=== PATIENT | female | born 1985 | race Caucasian/White ===

== ENCOUNTER 2018-09-14 12:57 | Emergency (ER) | payer MEDICAID, OTHER ==
[~2018-09-14] VITALS: Ht 167.6 cm; Wt 88.5 kg
[2018-09-14 13:01] VITALS: BP 140/87
--- NOTE | 2018-09-14 13:21 | NUR ---
PT BIB SELF C/O MIGRAIN FLARE UP SINCE WEDNESDAY, PT IS AAOX4, NOT IN RESPIRATORY DISTRESS, V/S STABLE, KEPT RESTED AND COMFORTABLE, AWAITING ER MD FOR EVAL.
== END 2018-09-14 14:22 | disposition home or self-care (01) ==
LOC: ER 12:59
DX: G43.909 Migraine, unspecified, not intractable, without status migrainosus (principal); G89.29 Other chronic pain; F10.10 Alcohol abuse, uncomplicated; Y90.9 Presence of alcohol in blood, level not specified; Z76.0 Encounter for issue of repeat prescription
CPT/HCPCS: A4606; Z7610

== ENCOUNTER 2018-11-04 17:53 | Emergency (ER) | payer OTHER ==
[~2018-11-04] VITALS: Ht 167.6 cm; Wt 90.7 kg
[2018-11-04 17:53] VITALS: BP 151/79
--- NOTE | 2018-11-04 19:00 | NUR ---
Patient discharged to home in stable condition. Written and verbal after care instructions given. Patient verbalizes understanding of instruction.
== END 2018-11-04 19:00 | disposition home or self-care (01) ==
LOC: ER 17:54
DX: G43.909 Migraine, unspecified, not intractable, without status migrainosus (principal); G89.29 Other chronic pain; F10.10 Alcohol abuse, uncomplicated; Y90.9 Presence of alcohol in blood, level not specified; Z76.0 Encounter for issue of repeat prescription
CPT/HCPCS: 99283; A4606

== ENCOUNTER 2018-11-08 15:51 | Emergency (ER) | payer MEDICAID, OTHER ==
[~2018-11-08] VITALS: Ht 167.6 cm; Wt 90.7 kg
[2018-11-08 15:55] VITALS: BP 139/74
--- NOTE | 2018-11-08 16:11 | NUR ---
SEEN AND EXAMINED BY MARGARITO CHIN NP.
--- NOTE | 2018-11-08 16:33 | NUR ---
Patient discharged to home in stable condition. Written and verbal after care instructions given. Patient verbalizes understanding of instruction.
== END 2018-11-08 16:34 | disposition home or self-care (01) ==
LOC: ER 15:51
DX: Z76.0 Encounter for issue of repeat prescription (principal); G43.909 Migraine, unspecified, not intractable, without status migrainosus

== ENCOUNTER 2019-03-27 17:06 | Emergency (ER) | payer MEDICAID ==
[~2019-03-27] VITALS: Ht 170.2 cm; Wt 74.8 kg
[2019-03-27 17:20] VITALS: BP 124/80
--- NOTE | 2019-03-27 17:20 | NUR ---
Came in for Migraine headache x 2 days. Nausea, vomiting, and diarrhea x 4 days. Also requests medication refill for Gabapentin 800mg PO tid. TO ER BED 9, HOOKED TO MONITOR, PROVIDED W WARM BLANKET, AWAITING MD SPRING
--- NOTE | 2019-03-27 17:26 | NUR ---
LUCRETIA GUARDADO AT BEDSIDE
--- NOTE | 2019-03-27 17:56 | NUR ---
Patient discharged to home in stable condition. Written and verbal after care instructions given. Patient verbalizes understanding of instruction.
== END 2019-03-27 17:55 | disposition home or self-care (01) ==
LOC: ER 17:06
DX: G43.909 Migraine, unspecified, not intractable, without status migrainosus (principal); R11.2 Nausea with vomiting, unspecified; G89.29 Other chronic pain